=== PATIENT | female | born 1965 | race Caucasian/White ===

== ENCOUNTER 2021-05-22 13:32 | Emergency (ER) | payer OTHER ==
[~2021-05-22] VITALS: Ht 170.2 cm; Wt 78.9 kg
[~2021-05-22 13:32] MED LIST: ACET-1635 PO
[2021-05-22 13:37] VITALS: BP 132/66
--- NOTE | 2021-05-22 13:57 | NUR ---
PATIENT PROVIDED W/ URINE CUP AT BEDSIDE.
--- NOTE | 2021-05-22 14:18 | NUR ---
55/F BIB SELF, AA&OX4, AMBULATORY W/ STEADY GAIT; PRESENTS TO THE ED WITH C/O ABDOMINAL PAIN 3/10, HEADACHE, N/V/ CHILLS, FATIGUE X2 DAYS. PATIENT STATES SHE "JUST DOESNT FEEL WELL." DENIES RECENT EXPOSURE TO COVID, -CP, SOB, RUNNY NOSE, CONGESTION, HEMATURIA, DYSURIA. PATIENT IS COVID VACCINATED W/ BOOSTER. LAST MEAL PATIENT ATE WAS "A COUPLE OF HOURS" PRIOR TO ED ARRIVAL AND MADE HER STOMACH "UPSET." PMH: DENIES MEDS: DENIES ALLERGIES: PENICILLIN, CODEINE
[2021-05-22] MEDS ORDERED: MORPHINE SULFATE 4 MG/ML SYR IVP ONE (14:25)
[2021-05-22] MEDS ORDERED: ONDANSETRON 4 MG/2 ML VIAL IVP ONE (14:25)
[2021-05-22] MEDS ORDERED: NACL 0.9% 1,000 ML IV ONE (14:30)
--- NOTE | 2021-05-22 14:30 | NUR ---
XRAY AT BEDSIDE
--- NOTE | 2021-05-22 14:45 | NUR ---
55 Y/O FEMALE BIB SELF C/O ABDOMINAL PAIN FOR 2 DAYS. STATES 3/10 PAIN, HEADACHE, N/V, CHILLS, AND FATIGUE. ABD SOFT NON TENDER. ACTIVE BOWEL SOUNDS. PMH: DENIES ALLERGIES: PENICILLIN, CODEINE
--- NOTE | 2021-05-22 15:04 | NUR ---
ULTRASOUND AT BEDSIDE
[2021-05-22 15:12] LABS: BASOPHILS % (AUTO) 0.1 % (0.0-2.0); EOSINOPHILS % (AUTO) 0.1 % (0.0-4.0); HEMATOCRIT 38.2 % (36-48); HEMOGLOBIN 12.8 g/dL (12.0-16.0); LYMPHOCYTES # (AUTO) 0.4 K/uL (2.5-16.5); LYMPHOCYTES % (AUTO) 5.4 % (20.5-51.1); MEAN CORPUSCULAR HEMOGLOBIN 29 pg (27-31); MEAN CORPUSCULAR HGB CONC 34 g/dL (33-37); MEAN CORPUSCULAR VOLUME 85.9 fL (80-94); MONOCYTES # (AUTO) 0.8 K/uL (0.8-1.0); MONOCYTES % (AUTO) 10.2 % (1.7-9.3); NEUTROPHILS # (AUTO) 6.8 K/uL (1.8-7.7); NEUTROPHILS % (AUTO) 84.2 % (42.2-75.2); PLATELET COUNT (AUTO) 183 K/uL (140-450); RED BLOOD CELL COUNT(AUTO) 4.45 MIL/uL (4.20-5.40); RED CELL DISTRIBUTION WIDTH 13.3 % (11.6-13.7); WHITE BLOOD COUNT (AUTO) 8.1 K/uL (4.8-10.8)
--- NOTE | 2021-05-22 15:20 | NUR ---
PT AMBULATED TO RESTROOM, STEADY GAIT
[2021-05-22 15:31] LABS: ALBUMIN 2.6 g/dL (3.4-5.0); BILIRUBIN,DIRECT 0.1 mg/dL (0.0-0.3); TOTAL BILIRUBIN 0.5 mg/dL (0.0-1.0)
[2021-05-22 15:35] LABS: ANION GAP 12.5 (8-16); CARBON DIOXIDE 28.1 mmol/L (21-32); CREATININE 0.6 mg/dL (0.6-1.3); POTASSIUM 3.6 mmol/L (3.5-5.1)
--- NOTE | 2021-05-22 16:19 | NUR ---
PATIENT AWAKE IN BED, NO SIGNS OF DISTRESS NOTED AT THIS TIME. SAFETY MEASURE CONTINUED. WILL CONTINUE TO MONITOR.
[2021-05-22 18:42] VITALS: BP 128/72
--- NOTE | 2021-05-22 18:42 | NUR ---
Patient discharged with v/s stable. Written and verbal after care instructions ABOUT ACUTE PANCREATITIS given and explained. Patient verbalized understanding. Ambulatory with steady gait. All questions addressed prior to discharge. Advised to follow up with PMD.
== END 2021-05-22 18:42 | disposition home or self-care (01) ==
LOC: MED 13:32
DX: K85.90 Acute pancreatitis without necrosis or infection, unspecified (principal); R11.0 Nausea; R68.83 Chills (without fever)
CPT/HCPCS: 36415; 71045; 74176; 76700; 80048; 80076; 81002; 81025; 83690; 84484; 84702; 85025; 93005; 96361; 96374; 96375; 99285; J2270; J2405; Q0092